=== PATIENT | female | born 1985 | race Asian ===

== ENCOUNTER 2016-08-10 00:32 | Emergency (ER) | payer BC ==
[~2016-08-10] VITALS: Ht 160 cm; Wt 71.7 kg
[2016-08-10 00:44] VITALS: BP 129/91
[2016-08-10 01:10] LABS: APPEARANCE,URINE SL CLOUDY (CLEAR); BILIRUBIN,URINE 1+ (NEGATIVE); BLOOD, URINE 3+ Ery/uL (NEGATIVE); COLOR,URINE YELLOW (YELLOW); KETONES,URINE TRACE (NEGATIVE); LEUKOCYTE ESTERASE ,URINE 3+ (NEGATIVE); NITRITE, URINE POSITIVE (NEGATIVE); PROTEIN,URINE 3+ mg/dl (NEGATIVE); UGLUCOSE 1+ mg/dL (NEGATIVE); UROBILINOGEN,URINE >=8.0 EU/dL (0.2)
[2016-08-10 01:17] LABS: PREGNANCY TEST URINE QUAL NEGATIVE (NEGATIVE)
[2016-08-10 01:21] LABS: ADD URINE CULTURE YES; BACTERIA,URINE 3+ /HPF (None Seen); RBC,URINE TOO NUMEROUS TO COUN /HPF (0-2); SQUAMOUS EPITHELIAL CELL,UR Moderate /HPF (None Seen); WBC,URINE TOO NUMEROUS TO COUN /HPF (0-3)
[2016-08-10] MEDS ORDERED: CEFTRIAXONE 1 G VIAL ONE (01:58)
[2016-08-10] MEDS ORDERED: PHENAZOPYRIDINE HCL 200 MG TABLET ONE (01:58)
[2016-08-10] MEDS ORDERED: ONDANSETRON 4 MG TAB.RAPDIS ONE (01:58)
[2016-08-10] MEDS ORDERED: NITROFURANTOIN/NITROFURAN MAC 100 MG CAPSULE ONE (01:58)
[2016-08-10] MEDS ORDERED: LIDOCAINE /MPF 1% VIAL 5 ML VIAL ONE (01:58)
[2016-08-10] MEDS ORDERED: HYDROCODONE/APAP 5/325MG 1 EACH TABLET ONE (01:58)
[2016-08-10] MEDS ORDERED: NITROFURANTOIN/NITROFURAN MAC 100 MG CAPSULE PO ONE (02:00)
[2016-08-10] MEDS ORDERED: ONDANSETRON 4 MG TAB.RAPDIS SL ONE (02:00)
[2016-08-10] MEDS ORDERED: PHENAZOPYRIDINE HCL 200 MG TABLET PO ONE (02:00)
[2016-08-10] MEDS ORDERED: HYDROCODONE/APAP 5/325MG 1 EACH TABLET PO ONE (02:00)
[2016-08-10] MEDS ORDERED: CEFTRIAXONE 1 G VIAL IM ONE (02:00)
== END 2016-08-10 02:14 | disposition home or self-care (01) ==
LOC: ER 00:36
DX: N12 Tubulo-interstitial nephritis, not specified as acute or chronic (principal); R10.9 Unspecified abdominal pain; J45.909 Unspecified asthma, uncomplicated
CPT/HCPCS: 81000-TC; 84703-TC; 87086-TC; 87186-TC; A4606; J0696; J3490; Q0162; Z7610